=== PATIENT | female | born 1945 | race Two or more races ===

== ENCOUNTER 2016-10-31 05:45 | Inpatient (IN) | payer MEDICARE, OTHER ==
[2016-10-30 10:33] VITALS: BMI 27.6
[2016-10-31] VITALS (20 sets, daily range): BP systolic 100–127; BP diastolic 50–69; PULSE 72–84; RESP 15–22; Ht 152.4 cm; Wt 70.0 kg
[~2016-10-31] VITALS: Ht 152.4 cm; Wt 70.0 kg
[~2016-10-31 05:45] MED LIST: CEFAZOLIN 2 GM/50 ML (PMX) 50 ML IVPB ONE
[2016-10-31] MEDS ORDERED: METF-382 PO (06:23)
[2016-10-31] MEDS ORDERED: CALC600T11 PO (06:23)
[2016-10-31] MEDS ORDERED: ATOR20TA38 PO (06:23)
[2016-10-31] MEDS ORDERED: ONDANSETRON 4 MG INJ ONE (07:09)
[2016-10-31] MEDS ORDERED: DEXAMETHASONE 4 MG/ML 1 ML INJ ONE (07:09)
[2016-10-31] MEDS ORDERED: CEFAZOLIN 1 GM INJ ONE (07:09)
[2016-10-31] MEDS ORDERED: ROCURONIUM 50 MG INJ ONE (07:09)
[2016-10-31] MEDS ORDERED: FAMOTIDINE 20 MG INJ ONE (07:09)
[2016-10-31] MEDS ORDERED: LIDOCAINE 1% (MDV) 20 ML INJ ONE (07:09)
[2016-10-31] MEDS ORDERED: FENTAnyl 50 MCG/ML VIAL ONE (07:09)
[2016-10-31] MEDS ORDERED: PROPOFOL 20 ML ONE (07:09)
[2016-10-31] MEDS ORDERED: METOCLOPRAMIDE 10 MG INJ ONE (07:09)
[2016-10-31] MEDS ORDERED: ETOMIDATE 20 MG INJ ONE (07:09)
[2016-10-31] MEDS ORDERED: EPHEDrine SULFATE 50 MG/5 ML SYG IV PRN (07:30)
[2016-10-31] MEDS ORDERED: LABETALOL HCL 20MG INJ IV PRN (07:30)
[2016-10-31] MEDS ORDERED: FENTAnyl 50 MCG/ML VIAL IV PRN (07:30)
[2016-10-31] MEDS ORDERED: HYDROmorphONE (0.2 MG/ML) 10ML SYG IV PRN (07:30)
[2016-10-31] MEDS ORDERED: hydrALAzine 20 MG INJ IV PRN (07:30)
[2016-10-31] MEDS ORDERED: ONDANSETRON 4 MG INJ IV PRN (07:30)
--- NOTE | 2016-10-31 07:50 | HPN ---
Date/Time of Note Date/Time of Note DATE: 10/31/16 TIME: 07:50 Interval H&P Admission Note Pt. seen H&P reviewed: No system changes KARIE DICK DPM Oct 31, 2016 07:50
[2016-10-31] MEDS ORDERED: BACITRACIN 50000 UNITS INJ ONE (08:29)
[2016-10-31] MEDS ORDERED: HYDROmorphONE 2 MG/ML SYG ONE (08:34)
[2016-10-31] MEDS ORDERED: NEOSTIGMINE 3 MG/3 ML SYRINGE ONE (08:36)
[2016-10-31] MEDS ORDERED: GLYCOPYRROLATE 0.4 MG INJ ONE (08:36)
[2016-10-31] MEDS ORDERED: EPHEDrine SULFATE 50 MG/5 ML SYG ONE (08:37)
[2016-10-31] MEDS ORDERED: BUPIVACAINE 0.5% (SDV) 30 ML INJ ONE (10:44)
[2016-10-31 11:03] LABS: AADO2 Arterial 588.8 mmHg (7.0-24.0); Arterial Base Excess -1.6 mmol/L (-3.0-3); Arterial COHb 0 % (0.0-3.0); Arterial Fraction of Oxyhgb 89.6 % (93.0-99.0); Arterial HCO3 26.3 mmol/L (22.0-26.0); Arterial MetHb 0.4 % (0.0-1.5); Arterial Total Hemglobin 14.2 g/dl (12.0-18.0); MODE SURGERY
--- NOTE | 2016-10-31 11:12 | OPR ---
Date/Time of Note Date/Time of Note DATE: 10/31/16 TIME: 11:10 Operative Report Procedure Date: Oct 31, 2016 Preoperative Diagnosis Left ankle DJD Left ankle pain Difficulty walking Postoperative Diagnosis Left ankle DJD Left ankle pain Difficulty walking Operation Performed Left total ankle replacement Application of posterior splint to the left lower extremity Intra-operative use and interpretation of fluoroscopy Surgeon: KARIE DICK DPM Anesthesia: general Estimated Blood Loss: 10 - 50 ml's Specimens Left ankle joint Complications: None Pt Condition Post Procedure: stable Disposition: PACU Indications This is a pleasant 71 year old female who has been suffering with chronic left ankle pain for many years. Patient has had many different treatment types including intra-articular injection of local cortisone, physical therapy, shoe gear modification, activity modification, and has not been able to get pain relief. Reports her pain is so severe that she is unable to walk and stand. Patient reports the pain is worse with activity. Denies any recent trauma and reports no fever, chills, nausea or vomiting. Risks and complications of this type surgery was discussed with patient in great detail. Risks and complications discussed, include but are not limited to, postoperative infection , failure of surgery, need for additional surgical procedures, failure of hardware, implant failure, nerve damage, damage to arteries and veins, deep venous thrombosis, limb loss and loss of life. Operative\Procedure Findings Degenerative joint disease of the left ankle. Cystic changes in both the talus and the tibia. Procedure Description Patient was seen in the preoperative area. Proposed procedure was discussed with patient in great detail. All questions were answered. Informed consent was obtained, signed and placed in the chart. The patient was then taken to the operating room and was placed on the operating table in the supine position. Anesthesiologist gave patient general anesthesia. All bony prominences were properly padded. A timeout was called by the circulating nurse and agreed upon by all members of the operating room. Thigh tourniquet was applied to the left thigh. The left lower extremity was scrubbed, prepped and draped in usual aseptic manner. Esmarch bandage was utilized to exsanguinate the left lower extremity. The thigh tourniquet was inflated to 300 mmHg pressure. Next, an anterior incision was made over the anterior ankle measuring 10 cm using a #10 blade. Bleeders were cauterized as necessary. Dissection was deepened through the layers all the way down to the periosteal layer with care being taken to identify and protect vital neurovascular structures. Throughout the dissection, the extensor tendon such as tibialis anterior and extensor digitorum longus tendons were identified and retracted medially and the neurovascular bundle was retracted laterally. Anterior extensor retinaculum needed to be cut but was tacked prior to going deeper. The tendon sheath encompassing the tibialis anterior and extensor digitorum longus tendon was also incised and tagged. I was able to get to the ankle joint through very careful dissection. The joint capsule was incised and reflected off of the distal tibia and the talus exposing the entire ankle joint. Next, the wound was flushed with copious amounts of sterile normal saline. Using the [employer] 3D printed cutting guides, I went ahead and started with the cutting guide for the distal tibia. This was placed as per protocol with the field representative/health education present. I proceeded to check the placement under C arm. Once I was satisfied, I started to make my tibial cuts. When I was finished with the tibial cuts, I went ahead and remove the section of bone that was cut. Next, the guide was placed for drilling into the distal tibia. The jig was applied to the foot and a marker was placed on the central heel. A 15 blade was used to make a 1 cm incision. Incision was deepened all the way down to the lateral aspect of the calcaneus. C arm was used for proper placement. Next, the obturator and trocar was inserted into the plantar aspect of the heel. The trocar was then removed. I proceeded to do hebert drilling all the way from the plantar aspect of the calcaneus through the talus into the distal tibia all monitored through fluoroscopy. Next, I reamed the distal tibia to the desired position. In the back table, a 4 component construct was used for the distal tibia. This was inserted into the distal tibia systematically according to protocol. Next, once I was finished with insertion of the tibial components, the tibial plate was inserted and a mallet was used to engage the plate into the stent. Next, I started to prepare for my talar cut. A trial poly-and a trial talar dome was inserted and the proper placement of the talar dome was checked under C-arm. Next, the 3D model that was printed for the talus was inserted and secured with 2 K wires. The cutting guide was inserted for the talar cuts and checked under C-arm. Next the dome of the talus was cut and passed the back table. All rough edges were then smoothed using a hand rasp. Again, copious amounts of sterile normal saline was used. Next, a central wire was inserted for placement of reaming. Next, all components were removed except for the tibial plate which was permanent. Next, I proceeded to ream the central aspect of the talus. All instrumentation was removed. The talar component was then inserted and a mallet was used to hammer the component into the bone. I was able to insert a 10 mm polypropylene insert into the joint. Range of motion was checked and there was 10 dorsiflexion and 55 of plantarflexion. Intraoperative pictures were obtained. Copious amounts of sterile normal saline was used for irrigation. A mixture of 25% Betadine and 75 % sterile normal saline was used as well for irrigation. All bleeders were then cauterized as necessary. The pneumatic thigh tourniquet was deflated at this time and prompt hyperemic response was noted. Further exploration for bleeders revealed minimal bleeding. Next, all the layers that were opened initially were closed systematically using 4-0 Vicryl suture. This included the tendon sheaths the extensor retinaculum and the ankle joint capsule. Subcutaneous layer was closed using 3-0 Vicryl and the skin was closed using 4- 0 Monocryl in subcuticular stitch pattern. Steri-Strips were applied. The thigh tourniquet was deflated at this time prompt hyperemic response was noted to digits of the left foot. Posterior splint was applied. The patient tolerated procedure and anesthesia well. She was transferred to recovery room with vital signs stable and vascular status intact to the left lower extremity. Patient is to remain nonweightbearing on the left foot. Patient will be admitted to the hospital under [facility] for pain control. During the case, there was a component for the talar component piece type was not brought in by the field representative/health education from [employer] and therefore was not used. Proper documentation was submitted by the field representative/health education. KARIE DICK DPM Oct 31, 2016 11:12
--- NOTE | 2016-10-31 13:35 | RADRPT ---
PROCEDURE: XR Left Ankle. CLINICAL INDICATION: Postop imaging. TECHNIQUE: AP, oblique and lateral views of the left ankle were performed. COMPARISON: No comparison images available. FINDINGS: An arthroplasty was performed with the tibial and talar components of the left ankle are chondroplas ty anatomically aligned. There is no evidence of loosening. There is subcutaneous emphysema over t he ventral left ankle from recent surgery. There is a dorsal fiberglass splint in place. IMPRESSION: 1. Status post total left ankle arthroplasty with subcutaneous emphysema noted related to recent gayle rgery. No evidence of loosening or infection. RPTAT:AAJJ Physician Ever Date Time Electronically viewed and signed by Rigo Brown Physician on 10/31/2016 13:35 IVONNE/
[2016-10-31 13:52] LABS: Sample Type Blood venous
--- NOTE | 2016-10-31 14:55 | RADRPT ---
PROCEDURE: Intraoperative imaging of the left ankle with fluoroscopy. CLINICAL INDICATION: Left ankle pain. Intraoperative. TECHNIQUE: 6 images of the left ankle were obtained in the operating room with an image intensifie r. No radiologist was in attendance. 44 seconds of fluoroscopy time was used. COMPARISON: No prior study is available for comparison. FINDINGS: Images demonstrate placement of a tibiotalar joint arthroplasty with satisfactory alignment. IMPRESSION: 1. Intraoperative imaging of the left ankle. RPTAT: QQ .Marvin Rodriguez MD, Date Time Electronically viewed and signed by .Marvin Rodriguez MD, on 10/31/2016 14:55 .R/
--- NOTE | 2016-10-31 18:14 | CONS ---
Date/Time of Note Date/Time of Note DATE: 10/31/16 TIME: 18:08 Assessment/Plan Assessment/Plan Problems: (1) Status post left ankle joint replacement Status: Acute Comment: She is postop and stable without evidence of complications. We will continue and use Lovenox as DVT prophylaxis. (2) Eczema Status: Chronic Comment: Noted no need to treat at this time Qualifiers: Qualified Code: L30.9 - Eczema, unspecified type (3) Diabetes mellitus type 2 in obese Status: Chronic Comment: We will continue her on her outpatient medications and use her insulin sliding scale protocol (4) Obesity (BMI 30.0-34.9) Status: Chronic Comment: Calorie restriction diet (5) Hyperlipidemia associated with type 2 diabetes mellitus Status: Chronic Comment: Continue her medications Consultation Date/Type/Reason Admit Date/Time Oct 31, 2016 at 05:45 Date of Consultation: Oct 31, 2016 Type of Consultation: Internal medicine Reason for Consultation Postoperative management for diabetes hyperlipidemia and pain Referring Provider: KARIE DICK DPM Hx of Present Illness This is a [facility] admission for this 71-year-old female who was admitted by Dr. Dick after left total ankle replacement. She is seen postoperatively on the unit. She has been cleared for surgery by her physician Dr. Gutierrez. The patient gives a negative review of systems. Outpatient medications; Metformin 500 mg twice daily; atorvastatin 10 mg nightly Constitutional: no complaints (No fevers chills or sweats) Eyes: no complaints ENT: no complaints Respiratory: no complaints Cardiovascular: no complaints Gastrointestinal: no complaints Genitourinary: no complaints Musculoskeletal: no complaints Skin: no complaints Neurologic: no complaints Past Medical History Ab1; usual childhood diseases; history of varicella.; History of H. pylori treated; history of eczema Medical History: diabetes, high cholesterol Past Surgical History This is her first surgery in her lifetime Family History Significant Family History: diabetes, hypertension Social History Alcohol Use: none Smoking Status: Never smoker Drug Use: none Exam/Review of Systems Vital Signs Vitals Vital Signs Date Time Temp Pulse Resp B/P Pulse Ox O2 Delivery O2 Flow Rate FiO2 10/31/16 14:16 Nasal Cannula 3.0 10/31/16 11:51 76 17 100/50 98 10/31/16 11:13 97.9 Exam Constitutional: alert, oriented Eyes: EOMI, fundi, disc (Not visualized), nl conjunctiva, nl lids, nl sclera ENMT: mucosa pink and moist, nl external ears & nose, nl lips & teeth, nl nasal mucosa & septum Neck: non-tender, other (No thyromegaly), supple Respiratory: clear to auscultation, normal air movement Cardiovascular: nl pulses, regular rate and rhythm Gastrointestinal: nl liver, spleen, non-tender, soft Extremities: other (Left leg in a posterior splint) Neurological: STEAM PAN SPONGER II-XII intact, nl mental status, nl speech, nl strength, other (Sensory for distal left toes is normal) Results Results 24 hrs Laboratory Tests Test 10/31/16 06:11 10/31/16 10:59 10/31/16 14:38 10/31/16 17:52 Bedside Glucose 156 197 180 Arterial Blood HCO3 26.3 H Arterial Blood Base Excess -1.6 Arterial Blood Oxygen Saturation 90.0 L Gerard Test N/A Arterial Blood Gas Puncture Site OTHER Arterial Blood Carboxyhemoglobin 0 Arterial Blood Date Drawn 10/31/2016 10:47:00 AM Arterial Blood Methemoglobin 0.4 Arterial Blood pCO2 (Temp correct) 57.6 H Arterial Blood pH (Temp corrected) 7.277 *L Arterial Blood pO2 (Temp corrected) 66.6 L Blood Gas A-a O2 Differential 588.8 H Blood Gas Critical Value Read Back DR DUEÑAS Blood Gas Modality SURGERY Blood Gas Notified Time 10/31/2016 11:03:00 AM Blood Gas Notified Whom JLD Blood Gas Specimen Source Blood venous Blood Gas Temperature 37.0 FiO2 100.0 Oxyhemoglobin Percent 89.6 L Total Hemoglobin 14.2 Medications Medications Current Medications Oxycodone/ Acetaminophen (Endocet ()) 1 tab Q4H PRN PO PAIN; Start 10/31 at 12:30 BARRY MINER MD Oct 31, 2016 18:14
[2016-10-31] MEDS: OXYCODONE/ACETAMINOPHEN (10/325) TAB PO PRN (18:29)
[2016-10-31] MEDS ORDERED: GLUCAGON 1 MG INJ IM PRN (18:30)
[2016-10-31] MEDS ORDERED: GLUCOSE GEL 15 GRAM TUBE PO PRN ×2 (18:30)
[2016-10-31] MEDS ORDERED: GLUCOSE GEL 15 GRAM TUBE BUCCAL PRN (18:30)
[2016-10-31] MEDS ORDERED: DEXTROSE 50% 50 ML SYRINGE IV PRN ×2 (18:30)
[2016-10-31] MEDS: metFORMIN 500 MG TAB PO SCH (18:36)
[2016-10-31] MEDS: ACCUCHECK XX SCH (19:55)
[2016-10-31] MEDS: ATORVASTATIN 10 MG TAB PO SCH (20:54)
[2016-10-31] MEDS: ENOXAPARIN 30 MG/0.3 ML SYG SC SCH (20:55)
[2016-10-31] MEDS: INSULIN ASPART [NOVOLOG] 3 ML PEN SC SCH (21:00)
[2016-11-01 00:19] VITALS: BP 113/57; RESP 19
[2016-11-01] MEDS: ACCUCHECK XX SCH ×4 (02:00→19:55)
[2016-11-01] MEDS: OXYCODONE/ACETAMINOPHEN (10/325) TAB PO PRN ×3 (04:34→21:32)
[2016-11-01 05:23] LABS: ADD SCAN DIFF NO
[2016-11-01 05:32] LABS: BASOPHILS % 0.3 % (0.0-2.0); EOSINOPHILS % 0.1 % (0.0-7.0); HEMATOCRIT 36.2 % (37.0-47.0); LYMPHOCYTES # 1.8 10^3/ul (0.8-2.9); LYMPHOCYTES % 13.8 % (15.0-51.0); MEAN CORPUSCULAR HEMOGLOBIN 29.9 pg (29.0-33.0); MEAN CORPUSCULAR HGB CONC 33.1 g/dl (32.0-37.0); MONOCYTE # 1.2 10^3/ul (0.3-0.9); NEUTROPHIL # 9.8 10^3/ul (1.6-7.5); NEUTROPHILS % 76.2 % (39.0-77.0); PLATELET COUNT 282 10^3/UL (140-415); RED BLOOD COUNT 4.02 10^6/ul (4.20-5.40); RED CELL DISTRIBUTION WIDTH 13.1 % (11.5-14.5); WHITE BLOOD COUNT 12.8 10^3/ul (4.8-10.8)
[2016-11-01 05:33] LABS: ALBUMIN 3.5 g/dl (3.3-4.9)
[2016-11-01 05:34] LABS: POTASSIUM 4.4 mmol/L (3.5-5.1)
[2016-11-01 05:36] LABS: ALBUMIN/GLOBULIN RATIO 1.16; BILIRUBIN,INDIRECT 0.9 mg/dl (0-1.1); BILIRUBIN,TOTAL 0.9 mg/dl (0.2-1.3); CALCIUM 8.4 mg/dl (8.4-10.2); CREATININE 0.87 mg/dl (0.44-1.00); TOTAL PROTEIN 6.5 g/dl (6.1-8.1)
[2016-11-01 05:40] LABS: CHOL/HDL RATIO 2.5 RATIO
[2016-11-01 06:06] LABS: THYROID STIMULATING HORMONE 0.658 MIU/L (0.465-4.680)
[2016-11-01 07:36] VITALS: BP 104/59; PULSE 68; RESP 14
[2016-11-01] MEDS: INSULIN ASPART [NOVOLOG] 3 ML PEN SC SCH ×4 (07:50→20:22)
[2016-11-01] MEDS: metFORMIN 500 MG TAB PO SCH ×2 (09:56→18:14)
[2016-11-01] MEDS: ENOXAPARIN 30 MG/0.3 ML SYG SC SCH ×2 (09:57→20:20)
--- NOTE | 2016-11-01 19:40 | PN ---
Date/Time of Note Date/Time of Note DATE: 11/01/16 TIME: 19:38 Assessment/Plan VTE Prophylaxis VTE Prophylaxis Intervention: LMWH Lines/Catheters IV [facility]from [facility] Saline Lock Assessment/Plan Chief Complaint/Hosp Course This is a first [facility] admission for this 71-year-old female who was admitted by Dr. Nunez after left total ankle replacement. She is seen postoperatively on the unit. She has been cleared for surgery by her physician Dr. Gutierrez. The patient gives a negative review of systems. Outpatient medications; Metformin 500 mg twice daily; atorvastatin 10 mg nightly Problems: (1) Diabetes mellitus type 2 in obese Status: Chronic Comment: Based on the patient's Accu-Cheks which is our first exposure to her her blood sugar control could do with a little bit of modification. We will be adding in linagliptin 5 mg once a day to her regimen and then can increase the Metformin if needed. At discharge we will try and send her out with blood glucose testing supplies. (2) Hyperlipidemia associated with type 2 diabetes mellitus Status: Chronic Comment: Adequately controlled on statin therapy (3) Status post left ankle joint replacement Status: Acute Comment: Patient is under the care of Dr. Nunez will defer off to him regarding issues regarding the ankle Subjective 24 Hr Interval Summary Free Text/Dictation Patient is resting in bed. She has no specific complaints Respiratory: no complaints Cardiovascular: no complaints Gastrointestinal: no complaints Genitourinary: no complaints Musculoskeletal: other Exam/Review of Systems Vital Signs Vitals Vital Signs Date Time Temp Pulse Resp B/P Pulse Ox O2 Delivery O2 Flow Rate FiO2 11/01/16 07:36 98.1 68 14 104/59 95 Room Air 10/31/16 16:15 2.0 Intake and Output 10/31/16 10/31/16 11/01/16 15:00 23:00 07:00 Intake Total 1350 ml 300 ml 600 ml Output Total 20 ml 400 ml 500 ml Balance 1330 ml -100 ml 100 ml Exam Constitutional: alert, oriented Cardiovascular: nl pulses, regular rate and rhythm Gastrointestinal: nl liver, spleen, non-tender, soft Results Result Diagram: 11/01/16 0425 11/01/16 0425 Results 24 hrs Laboratory Tests Test 10/31/16 20:52 11/01/16 04:25 11/01/16 08:16 11/01/16 11:52 Bedside Glucose 184 158 167 Alanine Aminotransferase (ALT/SGPT) 23 Albumin 3.5 Albumin/Globulin Ratio 1.16 Alkaline Phosphatase 53 Anion Gap 12 Aspartate Amino Transf (AST/SGOT) 20 Basophils # 0.0 Basophils % 0.3 Blood Urea Nitrogen 15 Calcium Level 8.4 Carbon Dioxide Level 32 H Chloride Level 99 Cholesterol Level 124 Cholesterol/HDL Ratio 2.5 Creatinine 0.87 Direct Bilirubin 0.00 Eosinophils # 0.0 Eosinophils % 0.1 Globulin 3.00 Glucose Level 169 HDL Cholesterol 48 Hematocrit 36.2 L Hemoglobin 12.0 Hepatitis B Surface Antigen NEGATIVE Hepatitis C Antibody NEGATIVE Indirect Bilirubin 0.9 LDL Cholesterol, Calculated 52 Lymphocytes # 1.8 Lymphocytes % 13.8 L Mean Corpuscular Hemoglobin 29.9 Mean Corpuscular Hemoglobin Concent 33.1 Mean Corpuscular Volume 90.0 Mean Platelet Volume 10.0 Monocytes # 1.2 H Monocytes % 9.0 Neutrophils # 9.8 H Neutrophils % 76.2 Nucleated Red Blood Cells # 0.0 Nucleated Red Blood Cells % 0.0 Platelet Count 282 Potassium Level 4.4 Red Blood Count 4.02 L Red Cell Distribution Width 13.1 Sodium Level 139 Thyroid Stimulating Hormone (TSH) 0.658 Total Bilirubin 0.9 Total Protein 6.5 Triglycerides Level 118 White Blood Count 12.8 H Test 11/01/16 14:26 11/01/16 17:34 Bedside Glucose 225 H 162 Medications Medications Current Medications Oxycodone/ Acetaminophen (Endocet (10/ 325)) 1 tab Q4H PRN PO PAIN Last administered on 11/01/16 09:56; Admin Dose 1 TAB; Start 10/31/16 at 12:30 Atorvastatin Calcium (Lipitor) 10 mg HS PO Last administered on 10/31/16 20:54 ; Admin Dose 10 MG; Start 10/31/16 at 21:00 Enoxaparin Sodium (Lovenox) 30 mg BID SC Last administered on 11/01/16 09:57; Admin Dose 30 MG; Start 10/31/16 at 21:00 Diagnostic Test (Pha) (Accucheck) 1 ea 02 XX ; Start 11/01/16 at 02:00 Miscellaneous Information 1 ea NOTE XX ; Start 10/31/16 at 18:30 Glucose (Glutose) 15 gm Q15M PRN PO DECREASED GLUCOSE; Start 10/31/16 at 18:30 Glucose (Glutose) 22.5 gm Q15M PRN PO DECREASED GLUCOSE; Start 10/31/16 at 18: 30 Dextrose (D50w Syringe) 25 ml Q15M PRN IV DECREASED GLUCOSE; Start 10/31/16 at 18:30 Dextrose (D50w Syringe) 50 ml Q15M PRN IV DECREASED GLUCOSE; Start 10/31/16 at 18:30 Glucagon (Glucagen) 1 mg Q15M PRN IM DECREASED GLUCOSE; Start 10/31/16 at 18:30 Glucose (Glutose) 15 gm Q15M PRN BUCCAL DECREASED GLUCOSE; Start 10/31/16 at 18 :30 Linagliptin (Tradjenta) 5 mg DAILY PO ; Start 11/01/16 at 20:00; Status BARRY RAY MD Nov 01, 2016 19:39
[2016-11-01] MEDS: LINAGLIPTIN 5 MG TABLET PO SCH (20:17)
[2016-11-01] MEDS: ATORVASTATIN 10 MG TAB PO SCH (20:17)
[2016-11-01 22:12] VITALS: BP 120/57; RESP 20
--- NOTE | 2016-11-01 23:51 | PN ---
Date/Time of Note Date/Time of Note DATE: 11/01/16 TIME: 23:50 Assessment/Plan Lines/Catheters IV Catheter Type (from Nrsg): Saline Lock Assessment/Plan Problems: (1) Status post left ankle joint replacement Status: Acute (2) Osteoarth NOS-ankle Status: Chronic (3) Obesity (BMI 30.0-34.9) Status: Chronic (4) Diabetes mellitus type 2 in obese Status: Chronic Assessment/Plan Dressing to be changed tomorrow. Keep non weightbearing. Continue pain management. Subjective 24 Hr Interval Summary Patient was seen at bedside. Patient is in no acute distress. Patient reports no new adverse events. Patient denies fever, chills, nausea or vomiting. Patient denies pain. Patient denies recent trauma. Patient reports bandages are being changed as directed. Patient does not report any new problems. Patient is status post left total ankle replacement. Constitutional: no complaints Pain Control: well controlled Exam/Review of Systems Vital Signs Vitals Vital Signs Date Time Temp Pulse Resp B/P Pulse Ox O2 Delivery O2 Flow Rate FiO2 11/02/16 08:37 98.0 80 18 122/66 93 11/01/16 07:36 Room Air 10/31/16 16:15 2.0 Intake and Output 11/01/16 11/01/16 11/02/16 15:00 23:00 07:00 Intake Total 700 ml 960 ml Output Total 1000 ml 1000 ml Balance -300 ml -40 ml Exam Free Text/Dictation Patient is laying supine in bed in no acute distress. Posterior splint and dressing is clean dry and intact with no bloody strikethrough. Labs and imaging reviewed. Patient is able to move toes and has full sensation to light touch, vibratory and temperature stimuli. Results Result Diagram: 11/01/16 0425 11/01/16 0425 KARIE IDCK DPM Nov 01, 2016 23:51
[2016-11-02] MEDS: ACCUCHECK XX SCH ×5 (02:00→23:08)
[2016-11-02] MEDS: OXYCODONE/ACETAMINOPHEN (10/325) TAB PO PRN ×4 (06:46→20:09)
[2016-11-02] MEDS: INSULIN ASPART [NOVOLOG] 3 ML PEN SC SCH ×4 (07:50→21:00)
[2016-11-02 08:37] VITALS: BP 122/66; RESP 18
[2016-11-02] MEDS: LINAGLIPTIN 5 MG TABLET PO SCH (08:39)
[2016-11-02] MEDS: metFORMIN 500 MG TAB PO SCH ×2 (08:39→17:52)
[2016-11-02] MEDS: ENOXAPARIN 30 MG/0.3 ML SYG SC SCH ×2 (08:40→20:14)
--- NOTE | 2016-11-02 11:52 | PN ---
Date/Time of Note Date/Time of Note DATE: 11/02/16 TIME: 11:41 Assessment/Plan Lines/Catheters IV Catheter Type (from Nrsg): Saline Lock [place] in Place (from Nrsg): No Assessment/Plan Problems: (1) Status post left ankle joint replacement Status: Acute (2) Diabetes mellitus type 2 in obese Status: Chronic (3) Obesity (BMI 30.0-34.9) Status: Chronic Assessment/Plan The dressing was changed today. Patient was placed back in compression bandaging and posterior splint. Physical therapy has been ordered for nonweightbearing activities involving the left lower extremity. Patient seems to be tolerating oral pain medication. Patient may be discharged home with home health nurse visits and home PT for ambulation purposes. I will see the patient in my office in 1 week. Subjective 24 Hr Interval Summary Patient was seen at bedside. Patient is in no acute distress. Patient reports no new adverse events. Patient denies fever, chills, nausea or vomiting. Patient denies pain. Patient denies recent trauma. Patient reports bandages are being changed as directed. Patient does not report any new problems. Constitutional: no complaints Pain Control: well controlled Exam/Review of Systems Vital Signs Vitals Vital Signs Date Time Temp Pulse Resp B/P Pulse Ox O2 Delivery O2 Flow Rate FiO2 11/02/16 08:37 98.0 80 18 122/66 93 11/01/16 07:36 Room Air 10/31/16 16:15 2.0 Intake and Output 11/01/16 11/01/16 11/02/16 15:00 23:00 07:00 Intake Total 700 ml 960 ml Output Total 1000 ml 1000 ml Balance -300 ml -40 ml Exam Free Text/Dictation Moderately obese female in no acute distress laying supine in bed. Posterior splint and dressing was removed from the left lower extremity. Patient has incision well coapted with no dehiscence and no sign of infection. Mild edema present. Mild tenderness to palpation. No crepitus on range of motion. Able to move toes and has full sensation to sharp dull vibratory and temperature stimuli. Labs reviewed. X-rays reviewed. Results Result Diagram: 11/01/16 0425 11/01/16 0425 KARIE DICK DPM Nov 02, 2016 11:52
--- NOTE | 2016-11-02 13:55 | PN ---
Date/Time of Note Date/Time of Note DATE: 11/02/16 TIME: 13:50 Assessment/Plan VTE Prophylaxis VTE Prophylaxis Intervention: LMWH Lines/Catheters IV [facility] Saline Lock Urinary Cath still in place: No Assessment/Plan Chief Complaint/Hosp Course This is a first [facility] admission for this 71-year-old female who was admitted by Dr. Nunez after left total ankle replacement. She is seen postoperatively on the unit. She has been cleared for surgery by her physician Dr. Gutierrez. The patient gives a negative review of systems. Outpatient medications; Metformin 500 mg twice daily; atorvastatin 10 mg nightly Problems: (1) Diabetes mellitus type 2 in obese Status: Chronic Comment: Patient's control is improved using combination therapy. Before making further changes a minute give it a day to see how she balances out. (2) Hyperlipidemia associated with type 2 diabetes mellitus Status: Chronic Comment: On treatment (3) Status post left ankle joint replacement Status: Acute Comment: As per Dr. Nunez; starting physical therapy Subjective 24 Hr Interval Summary Free Text/Dictation Patient is starting weightbearing now. She reports in general she is feeling okay Respiratory: no complaints Cardiovascular: no complaints Gastrointestinal: no complaints Genitourinary: no complaints Exam/Review of Systems Vital Signs Vitals Vital Signs Date Time Temp Pulse Resp B/P Pulse Ox O2 Delivery O2 Flow Rate FiO2 11/02/16 08:37 98.0 80 18 122/66 93 11/01/16 07:36 Room Air 10/31/16 16:15 2.0 Intake and Output 11/01/16 11/01/16 11/02/16 15:00 23:00 07:00 Intake Total 700 ml 960 ml Output Total 1000 ml 1000 ml Balance -300 ml -40 ml Exam Constitutional: alert, oriented Respiratory: clear to auscultation, normal air movement Cardiovascular: nl pulses, regular rate and rhythm Gastrointestinal: nl liver, spleen, non-tender, soft Results Result Diagram: 11/01/16 0425 11/01/16 0425 Results 24 hrs Laboratory Tests Test 11/01/16 14:26 11/01/16 17:34 11/01/16 20:22 11/02/16 08:13 Bedside Glucose 225 H 162 164 162 Test 11/02/16 12:11 Bedside Glucose 190 Medications Medications Current Medications Oxycodone/ Acetaminophen (Endocet (10/ 325)) 1 tab Q4H PRN PO PAIN Last administered on 11/02/16 11:08; Admin Dose 1 TAB; Start 10/31/16 at 12:30 Atorvastatin Calcium (Lipitor) 10 mg HS PO Last administered on 11/01/16 20:17 ; Admin Dose 10 MG; Start 10/31/16 at 21:00 Enoxaparin Sodium (Lovenox) 30 mg BID SC Last administered on 11/02/16 08:40; Admin Dose 30 MG; Start 10/31/16 at 21:00 Diagnostic Test (Pha) (Accucheck) 1 ea 02 XX ; Start 11/01/16 at 02:00 Miscellaneous Information 1 ea NOTE XX ; Start 10/31/16 at 18:30 Glucose (Glutose) 15 gm Q15M PRN PO DECREASED GLUCOSE; Start 10/31/16 at 18:30 Glucose (Glutose) 22.5 gm Q15M PRN PO DECREASED GLUCOSE; Start 10/31/16 at 18: 30 Dextrose (D50w Syringe) 25 ml Q15M PRN IV DECREASED GLUCOSE; Start 10/31/16 at 18:30 Dextrose (D50w Syringe) 50 ml Q15M PRN IV DECREASED GLUCOSE; Start 10/31/16 at 18:30 Glucagon (Glucagen) 1 mg Q15M PRN IM DECREASED GLUCOSE; Start 10/31/16 at 18:30 Glucose (Glutose) 15 gm Q15M PRN BUCCAL DECREASED GLUCOSE; Start 10/31/16 at 18 :30 Linagliptin (Tradjenta) 5 mg DAILY PO Last administered on 11/02/16 08:39; Admin Dose 5 MG; Start 11/01/16 at 20:00 BARRY MINER MD Nov 02, 2016 13:55
[2016-11-02 20:06] VITALS: BP 128/61; RESP 20
[2016-11-02] MEDS: ATORVASTATIN 10 MG TAB PO SCH (20:09)
[2016-11-02] MEDS: HYDROmorphONE 2 MG TAB PO PRN (22:23)
[2016-11-03 07:30] VITALS: BP 132/85; RESP 18
[2016-11-03] MEDS: INSULIN ASPART [NOVOLOG] 3 ML PEN SC SCH ×4 (07:50→21:00)
[2016-11-03] MEDS: LINAGLIPTIN 5 MG TABLET PO SCH (08:47)
[2016-11-03] MEDS: HYDROmorphONE 2 MG TAB PO PRN ×3 (08:47→21:46)
[2016-11-03] MEDS: ENOXAPARIN 30 MG/0.3 ML SYG SC SCH ×2 (08:48→20:48)
--- NOTE | 2016-11-03 08:50 | PN ---
Date/Time of Note Date/Time of Note DATE: 11/03/16 TIME: 08:48 Assessment/Plan VTE Prophylaxis VTE Prophylaxis Intervention: LMWH Lines/Catheters [facility] Saline Lock Urinary Cath still in place: No Assessment/Plan Chief Complaint/Hosp Course This is a first [facility] admission for this 71-year-old female who was admitted by Dr. Nunez after left total ankle replacement. She is seen postoperatively on the unit. She has been cleared for surgery by her physician Dr. Gutierrez. The patient gives a negative review of systems. Outpatient medications; Metformin 500 mg twice daily; atorvastatin 10 mg nightly Problems: (1) Status post left ankle joint replacement Status: Acute Comment: This going to proved to be a little bit of a planning issue. Patient lives in a second floor apartment is nonweightbearing and is unable to get up the stairs. In addition to this she has family members at home that she needs to be responsible for at least as I can understand what she is saying. Will need case management possibly social work to work through this. From medical standpoint she is ready for discharge awaiting notes from Dr. Nunez (2) Hyperlipidemia associated with type 2 diabetes mellitus Status: Chronic Comment: Stable and controlled (3) Diabetes mellitus type 2 in obese Status: Chronic Comment: Her blood sugar control while not perfect is certainly better than when she was admitted to the hospital. I will make some further adjustments to her regimen. Subjective 24 Hr Interval Summary Free Text/Dictation Patient reports that sure her pain is under fair control. She is not ambulating Constitutional: no complaints Respiratory: no complaints Cardiovascular: no complaints Gastrointestinal: no complaints Genitourinary: no complaints Musculoskeletal: other (Pain at left foot) Exam/Review of Systems Vital Signs Vitals Vital Signs Date Time Temp Pulse Resp B/P Pulse Ox O2 Delivery O2 Flow Rate FiO2 11/03/16 07:30 98.0 80 18 132/85 97 11/01/16 07:36 Room Air 10/31/16 16:15 2.0 Intake and Output 11/02/16 11/02/16 11/03/16 15:00 23:00 07:00 Intake Total 840 ml 550 ml Output Total 1200 ml 1100 ml Balance -360 ml -550 ml Exam Constitutional: alert, oriented Neck: non-tender, supple Respiratory: clear to auscultation, normal air movement Cardiovascular: nl pulses, regular rate and rhythm Gastrointestinal: nl liver, spleen, non-tender, soft Musculoskeletal: other (Foot remains in a posterior cast/brace) Results Result Diagram: 11/01/165 11/01/16 0425 Results 24 hrs Laboratory Tests Test 11/02/16 12:11 11/02/16 17:22 11/02/16 20:12 11/03/16 08:05 Bedside Glucose 190 159 197 142 Medications Medications Current Medications Oxycodone/ Acetaminophen (Endocet (10/ 325)) 1 tab Q4H PRN PO PAIN Last administered on 11/02/16 20:09; Admin Dose 1 TAB; Start 10/31/16 at 12:30 Atorvastatin Calcium (Lipitor) 10 mg HS PO Last administered on 11/02/16 20:09 ; Admin Dose 10 MG; Start 10/31/16 at 21:00 Enoxaparin Sodium (Lovenox) 30 mg BID SC Last administered on 11/02/16 20:14; Admin Dose 30 MG; Start 10/31/16 at 21:00 Diagnostic Test (Pha) (Accucheck) 1 ea 02 XX ; Start 11/01/16 at 02:00 Miscellaneous Information 1 ea NOTE XX ; Start 10/31/16 at 18:30 Glucose (Glutose) 15 gm Q15M PRN PO DECREASED GLUCOSE; Start 10/31/16 at 18:30 Glucose (Glutose) 22.5 gm Q15M PRN PO DECREASED GLUCOSE; Start 10/31/16 at 18: 30 Dextrose (D50w Syringe) 25 ml Q15M PRN IV DECREASED GLUCOSE; Start 10/31/16 at 18:30 Dextrose (D50w Syringe) 50 ml Q15M PRN IV DECREASED GLUCOSE; Start 10/31/16 at 18:30 Glucagon (Glucagen) 1 mg Q15M PRN IM DECREASED GLUCOSE; Start 10/31/16 at 18:30 Glucose (Glutose) 15 gm Q15M PRN BUCCAL DECREASED GLUCOSE; Start 10/31/16 at 18 :30 Linagliptin (Tradjenta) 5 mg DAILY PO Last administered on 11/02/16 08:39; Admin Dose 5 MG; Start 11/01/16 at 20:00 Hydromorphone HCl (Dilaudid) 2 mg Q4H PRN PO PAIN Last administered on t 22:23; Admin Dose 2 MG; Start 11/02/16 at 22:00; Stop 11/03/16 at 22:00 BARRY MINER MD Nov 03, 2016 08:50
[2016-11-03] MEDS: ACCUCHECK XX SCH ×4 (09:50→21:18)
[2016-11-03] MEDS ORDERED: BISACODYL 10 MG SUPP PR PRN (12:00)
[2016-11-03] MEDS: OXYCODONE/ACETAMINOPHEN (10/325) TAB PO PRN (15:24)
[2016-11-03] MEDS: metFORMIN 500 MG TAB PO SCH (17:50)
[2016-11-03 20:04] VITALS: BP 124/60; RESP 20
[2016-11-03] MEDS: ATORVASTATIN 10 MG TAB PO SCH (20:46)
[2016-11-04 07:00] VITALS: BP 138/63; RESP 20
[2016-11-04] MEDS: INSULIN ASPART [NOVOLOG] 3 ML PEN SC SCH ×3 (07:50→16:42)
[2016-11-04] MEDS: LINAGLIPTIN 5 MG TABLET PO SCH (09:28)
[2016-11-04] MEDS: metFORMIN 500 MG TAB PO SCH ×2 (09:28→16:42)
[2016-11-04] MEDS: ENOXAPARIN 30 MG/0.3 ML SYG SC SCH (09:32)
[2016-11-04] MEDS: ACCUCHECK XX SCH ×2 (09:50→14:20)
--- NOTE | 2016-11-04 11:45 | CONS ---
Date/Time of Note Date/Time of Note DATE: 11/04/16 TIME: 11:43 Assessment/Plan Assessment/Plan Problems: (1) Diabetes mellitus type 2 in obese Status: Chronic Comment: Excellent glycemic control on metformin and tradjenta. Will cont. (2) Hyperlipidemia associated with type 2 diabetes mellitus Status: Chronic Comment: Cont. statin (3) Status post left ankle joint replacement Status: Acute Comment: Doing well, POD#4. Awaiting SNF placement for rehab. Consultation Date/Type/Reason Admit Date/Time Oct 31, 2016 at 05:45 Initial Consult Date 10/31/16 Type of Consultation: Internal medicine Reason for Consultation Medical management Referring Provider: KARIE DICK DPM 24 HR Interval Summary Constitutional: improved, no complaints Detailed Summary Respiratory: no complaints Cardiovascular: no complaints Gastrointestinal: no complaints Genitourinary: no complaints Musculoskeletal: no complaints Neurologic: no complaints Exam/Review of Systems Vital Signs Vitals VS - Last 72 Hours, by Label Date Time Temp Pulse Resp B/P Pulse Ox O2 Delivery O2 Flow Rate FiO2 11/04/16 07:00 98.7 78 20 138/63 97 11/03/16 20:04 98.3 78 20 124/60 99 11/03/16 07:30 98.0 80 18 132/85 97 11/02/16 20:06 98.2 69 20 128/61 98 11/02/16 08:37 98.0 80 18 122/66 93 11/01/16 22:12 99.0 90 20 120/57 93 Vital Signs Date Time Temp Pulse Resp B/P Pulse Ox O2 Delivery O2 Flow Rate FiO2 11/04/16 07:00 98.7 78 20 138/63 97 11/01/16 07:36 Room Air 10/31/16 16:15 2.0 Intake and Output 11/03/16 11/03/16 11/04/16 15:00 23:00 07:00 Intake Total 800 ml 1050 ml Output Total 1200 ml 1150 ml Balance -400 ml -100 ml Exam Constitutional: alert, oriented, well developed Psych: nl mood/affect, no complaints Respiratory: clear to auscultation, normal air movement Cardiovascular: nl pulses, regular rate and rhythm, No edema, No murmurs/extra sounds, No rub Gastrointestinal: bowel sounds, nl liver, spleen, non-tender, soft, No mass, No rebound or guarding Musculoskeletal: No nl extremities to inspection (LLE in cast) Extremities: No clubbing, No cyanosis, No edema Neurological: [employer] II-XII intact, nl mental status, nl speech, nl strength Additional Comments Bedside Glucose - 72 Hours Test 11/01/16 11:52 11/01/16 14:26 11/01/16 17:34 11/01/16 20:22 Bedside Glucose 167mg/dL (70-220) 225mg/dL (70-220) H 162mg/dL (70-220) 164mg/dL (70-220) Test 11/02/16 08:13 11/02/16 12:11 11/02/16 17:22 11/02/16 20:12 Bedside Glucose 162mg/dL (70-220) 190mg/dL (70-220) 159mg/dL (70-220) 197mg/dL (70-220) Test 11/03/16 08:05 11/03/16 11:43 11/03/16 17:07 11/03/16 20:16 Bedside Glucose 142mg/dL (70-220) 138mg/dL (70-220) 130mg/dL (70-220) 151mg/dL (70-220) Test 11/04/16 08:17 Bedside Glucose 135mg/dL (70-220) Results Result Diagram: 11/01/16 0425 11/01/16 0425 Results 24 hrs Laboratory Tests Test 11/03/16 17:07 11/03/16 20:16 11/04/16 08:17 Bedside Glucose 130 151 135 Medications Medications Current Medications Oxycodone/ Acetaminophen (Endocet (10/ 325)) 1 tab Q4H PRN PO PAIN Last administered on 11/03/16 15:24; Admin Dose 1 TAB; Start 10/31/16 at 12:30 Atorvastatin Calcium (Lipitor) 10 mg HS PO Last administered on 11/03/16 20:46 ; Admin Dose 10 MG; Start 10/31/16 at 21:00 Enoxaparin Sodium (Lovenox) 30 mg BID SC Last administered on 11/04/16 09:32; Admin Dose 30 MG; Start 10/31/16 at 21:00 Diagnostic Test (Pha) (Accucheck) 1 02 XX ; Start 11/01/16 at 02:00 Miscellaneous Information 1 ea NOTE XX ; Start 10/31/16 at 18:30 Glucose (Glutose) 15 gm Q15M PRN PO DECREASED GLUCOSE; Start 10/31/16 at 18:30 Glucose (Glutose) 22.5 gm Q15M PRN PO DECREASED GLUCOSE; Start 10/31/16 at 18: 30 Dextrose (D50w Syringe) 25 ml Q15M PRN IV DECREASED GLUCOSE; Start 10/31/16 at 18:30 Dextrose (D50w Syringe) 50 ml Q15M PRN IV DECREASED GLUCOSE; Start 10/31/16 at 18:30 Glucagon (Glucagen) 1 mg Q15M PRN IM DECREASED GLUCOSE; Start 10/31/16 at 18:30 Glucose (Glutose) 15 gm Q15M PRN BUCCAL DECREASED GLUCOSE; Start 10/31/16 at 18 :30 Linagliptin (Tradjenta) 5 mg DAILY PO Last administered on 11/04/16 09:28; Admin Dose 5 MG; Start 11/01/16 at 20:00 Bisacodyl (Dulcolax Supp) 10 mg Q12H PRN ID CONSTIPATION Last administered on 12:03; Admin Dose 10 MG; Start 11/03/16 at 12:00 JERI GONZALES MD Nov 04, 2016 11:45
[2016-11-04] MEDS: OXYCODONE/ACETAMINOPHEN (10/325) TAB PO PRN (16:42)
[2016-11-04 16:46] VITALS: BP 146/85; PULSE 75; RESP 18
== END 2016-11-04 19:18 | DRG 470 ==
LOC: REC 05:45 → MS1 12:55
PROVIDERS: ADMIT Podiatrist Foot & Ankle Surgery; ATTEND Podiatrist Foot & Ankle Surgery
PROC: B41G110 Fluoroscopy of Left Lower Extremity Arteries using Low Osmolar Contrast, Laser Intraoperative (ICD-10-PCS; 2016-10-31)
PROC: 0SRG0JZ Replacement of Left Ankle Joint with Synthetic Substitute, Open Approach (ICD-10-PCS; principal; 2016-10-31 07:30)
DX: M19.072 Primary osteoarthritis, left ankle and foot (principal); E11.69 Type 2 diabetes mellitus with other specified complication; R26.2 Difficulty in walking, not elsewhere classified; L30.9 Dermatitis, unspecified; E78.4 Other hyperlipidemia; E66.9 Obesity, unspecified; Z68.30 Body mass index [BMI] 30.0-30.9, adult
CPT/HCPCS: 36600; 73610; 80053; 80061; 82803; 82962; 84443; 85025; 86803; 87340; 88304; 88311; 97116; 97162; 97530; C1776; J0690; J1100; J1170; J1650; J1815; J2405; J2710; J2765; J3010